=== PATIENT | male | born 1965 | race Caucasian/White ===

== ENCOUNTER 2017-08-11 05:02 | Emergency (ER) | payer SELFPAY ==
[~2017-08-11] VITALS: Ht 167.6 cm; Wt 100.0 kg
[~2017-08-11 05:02] MED LIST: ATENOLOL
[2017-08-11 05:24] VITALS: BP 144/91
== END 2017-08-11 10:09 | disposition left against medical advice (07) ==
LOC: ER 05:02
DX: M54.5 Low back pain (principal); Z53.21 Procedure and treatment not carried out due to patient leaving prior to being seen by health care provider

== ENCOUNTER 2018-11-10 17:09 | Emergency (ER) | payer OTHER ==
[~2018-11-10] VITALS: Ht 167.6 cm; Wt 106.0 kg
[2018-11-10 17:13] VITALS: BP 153/91
== END 2018-11-10 20:01 | disposition left against medical advice (07) ==
LOC: ER 17:09
DX: R10.9 Unspecified abdominal pain (principal); Z53.21 Procedure and treatment not carried out due to patient leaving prior to being seen by health care provider

== ENCOUNTER 2019-03-10 20:53 | Inpatient (IN) | payer OTHER ==
[~2019-03-10] VITALS: Ht 170.2 cm; Wt 108.4 kg
[2019-03-10 22:47] LABS: MEAN CORPUSCULAR VOLUME 66.5 fL (80.0-94.0); MEAN PLATELET VOLUME 8.4 fl (7.4-10.4); PLATELET 90 x1000/uL (130-400); RED BLOOD CELL COUNT 2.11 mill/uL (4.7-6.1); RED CELL DISTRIBUTION WIDTH 20.7 % (11.6-14.6)
[2019-03-10 22:48] LABS: CHLORIDE 100 mEq/L (98-107)
[2019-03-10 23:04] LABS: HEMOGLOBIN. 4.2 g/dL (14.0-18.0)
[2019-03-10 23:27] LABS: HEMATOCRIT 13.3 % (42.0-52.0)
[2019-03-11] VITALS (25 sets, daily range): BP systolic 109–141; BP diastolic 55–99
[2019-03-11] MEDS ORDERED: KCL 20MEQ/100ML PREMIX 100 ML IV NR
[2019-03-11 00:12] LABS: INR 1.4; PARTIAL THROMBOPLASTIN TIME 32.5 sec (23.4-31.0); PROTHROMBIN TIME 14.1 sec (9.6-11.0)
[2019-03-11] MEDS: POTASSIUM CHLORIDE 20MEQ TABLET SR PO NR ×2 (00:49→01:17)
[2019-03-11] MEDS ORDERED: DEXT 5%/0.45% NACL KCL 30MEQ/L 1,000 ML IV ONE (01:15)
[2019-03-11] MEDS: FUROSEMIDE 20MG/2ML VIAL IVP SCH ×2 (01:32→09:42)
[2019-03-11] MEDS: FAMOTIDINE 20MG/2ML VIAL IV SCH ×2 (01:32→09:42)
[2019-03-11] MEDS ORDERED: HYDR12.54 MT (03:03)
[2019-03-11 04:36] LABS: PLATELET ESTIMATE DECREASED
[2019-03-11] MEDS ORDERED: MORPHINE SULFATE 2 MG/ML CPJ (NOT FOR IM USE) IV PRN (05:00)
[2019-03-11] MEDS ORDERED: LORAZEPAM 2MG/ML CPJ IV PRN (05:00)
[2019-03-11] MEDS ORDERED: FOLIC ACID 1 MG, THIAMINE HCL 100 MG, MVI, ADULT NO.1 10 ML in DEXTROSE 5% WATER 1,000 ML IV ONE ×4 (06:00)
[2019-03-11] MEDS ORDERED: BACI3.5O19 EACHEYE (07:35)
[2019-03-11] MEDS: DEXT 5%/0.9% NACL 1,000 ML IV SCH (10:51)
[2019-03-11] MEDS: PANTOPRAZOLE SODIUM 40 MG/VIAL IV SCH ×2 (11:07→20:45)
[2019-03-11] MEDS ORDERED: SORBITOL 70% SOLN 30ML PO SCH ×2 (16:00→20:00)
[2019-03-11 20:46] LABS: BASOPHILS % 0.6 % (0.0-2.0); EOSINOPHILS % 6.2 % (0.0-5.0); LYMPHOCYTES % 12.9 % (20.0-50.0); MEAN CORPUSCULAR HEMOGLOBIN 22.6 pg (28.0-32.0); MEAN CORPUSCULAR VOLUME 72.3 fL (80.0-94.0); MEAN PLATELET VOLUME 8.8 fl (7.4-10.4); MONOCYTES % 9.7 % (2.0-8.0); NEUTROPHILS % 70.6 % (40.0-76.0); PLATELET 80 x1000/uL (130-400); RED BLOOD CELL COUNT 2.79 mill/uL (4.7-6.1); RED CELL DISTRIBUTION WIDTH 22.9 % (11.6-14.6)
[2019-03-11 20:52] LABS: HEMOGLOBIN. 6.3 g/dL (14.0-18.0)
[2019-03-11 20:53] LABS: HEMATOCRIT. 20.1 % (42.0-52.0)
[2019-03-11 21:00] LABS: INR 1.5; PROTHROMBIN TIME 14.8 sec (9.6-11.0)
[2019-03-11 21:42] LABS: HEPATITIS B SURFACE ANTIGEN NEGATIVE
[2019-03-11 22:12] LABS: HEPATITIS A AB IGM NEGATIVE (NEGATIVE)
[2019-03-12] VITALS (36 sets, daily range): BP systolic 103–146; BP diastolic 34–97
[2019-03-12 00:50] LABS: CHLORIDE 107 mEq/L (98-107)
[2019-03-12 00:55] LABS: HEMATOCRIT 19.1 % (42.0-52.0)
[2019-03-12 00:56] LABS: HEMOGLOBIN 5.9 g/dL (14.0-18.0); TOTAL IRON BINDING CAPACITY 322 ug/dL (250-450)
[2019-03-12] MEDS: FUROSEMIDE 20MG/2ML VIAL IVP SCH (08:09)
[2019-03-12] MEDS: PANTOPRAZOLE SODIUM 40 MG/VIAL IV SCH (08:09)
[2019-03-12 08:57] LABS: HEMATOCRIT 24.9 % (42.0-52.0)
[2019-03-12 09:00] LABS: INR 1.5; PARTIAL THROMBOPLASTIN TIME 32.6 sec (23.4-31.0); PROTHROMBIN TIME 14.8 sec (9.6-11.0)
[2019-03-12] MEDS ORDERED: POTASSIUM CHLORIDE INJ 40 MEQ in DEXT 5% WATER 250 ML IV NR ×2 (09:45→17:00)
[2019-03-12] MEDS: DEXT 5%/0.9% NACL 1,000 ML IV SCH ×3 (10:29→13:33)
[2019-03-12 12:52] LABS: HEMOGLOBIN 7.9 g/dL (14.0-18.0)
[2019-03-12] MEDS ORDERED: POTASSIUM CHLORIDE 20MEQ TABLET SR PO NR (15:30)
[2019-03-12] MEDS: LACTULOSE 20G/30ML UDC PO SCH (17:00)
[2019-03-12] MEDS: ASCORBIC ACID 500 MG TABLET PO SCH (21:26)
[2019-03-12] MEDS: FERROUS SULFATE 325MG TABLET PO SCH (21:26)
[2019-03-13] VITALS (14 sets, daily range): BP systolic 98–142; BP diastolic 60–93
[2019-03-13 00:11] LABS: HEMATOCRIT 24.1 % (42.0-52.0); HEMOGLOBIN 7.6 g/dL (14.0-18.0)
[2019-03-13 05:07] LABS: HIV SCREEN 4G Non Reactive (Non Reactive)
[2019-03-13 07:35] LABS: EOSINOPHILS % 9.7 % (0.0-5.0); HEMATOCRIT. 23.9 % (42.0-52.0); HEMOGLOBIN. 7.7 g/dL (14.0-18.0); LYMPHOCYTES % 17.6 % (20.0-50.0); MEAN CORPUSCULAR HEMOGLOBIN 23.7 pg (28.0-32.0); MEAN PLATELET VOLUME 8.4 fl (7.4-10.4); MONOCYTES % 8.3 % (2.0-8.0); NEUTROPHILS % 63.4 % (40.0-76.0); PLATELET 79 x1000/uL (130-400); RED BLOOD CELL COUNT 3.23 mill/uL (4.7-6.1); RED CELL DISTRIBUTION WIDTH 22.3 % (11.6-14.6)
[2019-03-13 07:51] LABS: CHLORIDE 108 mEq/L (98-107)
[2019-03-13] MEDS: LACTULOSE 20G/30ML UDC PO SCH ×3 (09:00→19:17)
[2019-03-13] MEDS: ASCORBIC ACID 500 MG TABLET PO SCH ×2 (09:20→21:14)
[2019-03-13] MEDS: FUROSEMIDE 20MG/2ML VIAL IVP SCH (09:20)
[2019-03-13] MEDS: FERROUS SULFATE 325MG TABLET PO SCH ×3 (09:21→19:17)
[2019-03-13] MEDS ORDERED: POTASSIUM CHLORIDE INJ 40 MEQ in DEXT 5% WATER 250 ML IV SCH (11:00)
[2019-03-13] MEDS ORDERED: MAGNESIUM 2 G PREMIX 50 ML IV SCH (11:00)
[2019-03-13] MEDS ORDERED: POTASSIUM CHLORIDE 20MEQ TABLET SR PO SCH (11:00)
[2019-03-13] MEDS ORDERED: SIMETHICONE 40 MG/0.6 ML 30ML ONE (13:36)
[2019-03-13] MEDS ORDERED: FENTANYL CITRATE/PF 50MCG/ML 2ML VIAL ONE (15:40)
[2019-03-13] MEDS ORDERED: PROPOFOL 200MG/20ML VIAL IV ONE ×2 (15:41→16:20)
[2019-03-13] MEDS ORDERED: MIDAZOLAM HCL 2 MG/2 ML VIAL ONE (15:41)
[2019-03-13] MEDS ORDERED: LIDOCAINE HCL/PF 1% 10 MG/ML 5ML VIAL ONE (15:42)
[2019-03-13] MEDS ORDERED: DIPHENHYDRAMINE 50MG/ML VIAL ONE (15:42)
[2019-03-14] VITALS (11 sets, daily range): BP systolic 115–147; BP diastolic 74–102
[2019-03-14 06:11] LABS: BASOPHILS % 1.3 % (0.0-2.0); EOSINOPHILS % 8.6 % (0.0-5.0); LYMPHOCYTES % 16.2 % (20.0-50.0); MEAN CORPUSCULAR HEMOGLOBIN 23.7 pg (28.0-32.0); MEAN CORPUSCULAR VOLUME 74.1 fL (80.0-94.0); MEAN PLATELET VOLUME 8.3 fl (7.4-10.4); MONOCYTES % 10.4 % (2.0-8.0); NEUTROPHILS % 63.5 % (40.0-76.0); PLATELET 81 x1000/uL (130-400); RED BLOOD CELL COUNT 3.37 mill/uL (4.7-6.1)
[2019-03-14 06:43] LABS: CHLORIDE 109 mEq/L (98-107)
[2019-03-14] MEDS: LACTULOSE 20G/30ML UDC PO SCH ×3 (08:12→21:05)
[2019-03-14] MEDS: FUROSEMIDE 20MG/2ML VIAL IVP SCH (08:12)
[2019-03-14] MEDS: FERROUS SULFATE 325MG TABLET PO SCH ×3 (08:12→18:20)
[2019-03-14] MEDS: DEXT 5%/0.9% NACL 1,000 ML IV SCH ×2 (08:13→17:00)
[2019-03-14] MEDS: ASCORBIC ACID 500 MG TABLET PO SCH ×2 (10:26→21:01)
[2019-03-14] MEDS ORDERED: MAGNESIUM 4 G PREMIX 100 ML IV SCH (14:00)
[2019-03-14] MEDS ORDERED: POTASSIUM CHLORIDE 20MEQ/PACKET PO SCH (16:00)
[2019-03-14] MEDS: POTASSIUM CHLORIDE 20MEQ TABLET SR PO SCH (18:45)
[2019-03-15] VITALS: BP 111/80
[2019-03-15 04:00] VITALS: BP 110/70
[2019-03-15] MEDS: LACTULOSE 20G/30ML UDC PO SCH ×2 (05:39→13:43)
[2019-03-15] MEDS: DEXT 5%/0.9% NACL 1,000 ML IV SCH (05:59)
[2019-03-15 06:31] LABS: CHLORIDE 108 mEq/L (98-107)
[2019-03-15 06:45] LABS: EOSINOPHILS % 8.9 % (0.0-5.0); HEMATOCRIT. 24.7 % (42.0-52.0); HEMOGLOBIN. 7.7 g/dL (14.0-18.0); LYMPHOCYTES % 16.5 % (20.0-50.0); MEAN CORPUSCULAR HEMOGLOBIN 23.6 pg (28.0-32.0); MEAN CORPUSCULAR VOLUME 75.4 fL (80.0-94.0); MEAN PLATELET VOLUME 8.4 fl (7.4-10.4); MONOCYTES % 8.5 % (2.0-8.0); NEUTROPHILS % 65.1 % (40.0-76.0); PLATELET 70 x1000/uL (130-400); RED BLOOD CELL COUNT 3.28 mill/uL (4.7-6.1); RED CELL DISTRIBUTION WIDTH 23.5 % (11.6-14.6)
[2019-03-15 08:00] VITALS: BP 118/70
[2019-03-15] MEDS: FUROSEMIDE 20MG/2ML VIAL IVP SCH (08:30)
[2019-03-15] MEDS: ASCORBIC ACID 500 MG TABLET PO SCH (08:30)
[2019-03-15] MEDS: POTASSIUM CHLORIDE 20MEQ TABLET SR PO SCH (08:30)
[2019-03-15] MEDS: FERROUS SULFATE 325MG TABLET PO SCH ×2 (08:30→12:09)
[2019-03-15 12:00] VITALS: BP 122/74
[2019-03-15] MEDS ORDERED: POTASSIUM CHLORIDE 20MEQ/PACKET PO NR (12:00)
[2019-03-15 16:16] VITALS: BP 122/74
== END 2019-03-15 16:00 | disposition home or self-care (01) | DRG 242 ==
LOC: ER 23:25 → 5EST 03-11 00:52 → ENRESERV 03-11 01:59
PROVIDERS: ADMIT Internal Medicine; ATTEND Internal Medicine
PROC: 30233N1 Transfusion of Nonautologous Red Blood Cells into Peripheral Vein, Percutaneous Approach (ICD-10-PCS; 2019-03-11)
PROC: 06L38CZ Occlusion of Esophageal Vein with Extraluminal Device, Via Natural or Artificial Opening Endoscopic (ICD-10-PCS; principal; 2019-03-13)
PROC: 0DJD8ZZ Inspection of Lower Intestinal Tract, Via Natural or Artificial Opening Endoscopic (ICD-10-PCS; 2019-03-13)
DX: I85.11 Secondary esophageal varices with bleeding (principal); K55.21 Angiodysplasia of colon with hemorrhage; D68.4 Acquired coagulation factor deficiency; D62 Acute posthemorrhagic anemia; E87.1 Hypo-osmolality and hyponatremia; D68.9 Coagulation defect, unspecified; K70.30 Alcoholic cirrhosis of liver without ascites; L03.116 Cellulitis of left lower limb; D69.59 Other secondary thrombocytopenia; E87.6 Hypokalemia; K44.9 Diaphragmatic hernia without obstruction or gangrene; F32.9 Major depressive disorder, single episode, unspecified; F10.10 Alcohol abuse, uncomplicated; F17.200 Nicotine dependence, unspecified, uncomplicated; I11.9 Hypertensive heart disease without heart failure; K31.9 Disease of stomach and duodenum, unspecified; K64.8 Other hemorrhoids; K76.6 Portal hypertension; K31.89 Other diseases of stomach and duodenum; L03.115 Cellulitis of right lower limb; I87.8 Other specified disorders of veins
CPT/HCPCS: 36415; 71045; 76700; 80048; 80076; 82140; 82248; 82270; 82607; 82728; 82746; 83540; 83550; 83735; 83880; 84132; 84484; 85014; 85018; 85049; 85384; 86705; 86709; 86803; 86850; 86900; 86920; 87340; 87389; 93005; 96374; 99285; C1893; C9113; J1200; J1940; J2250; J2704; J3010; J3411; J3475; J3480; J3490; J7042; J7050; J7060; J7070; P9016